=== PATIENT | female | born 2005 | race Caucasian/White ===

== ENCOUNTER 2024-08-19 19:12 | Emergency (ER) | payer BC, OTHER ==
[2024-08-19] MEDS ORDERED: Methocarbamol 500 MG TAB ONE (20:33)
== END 2024-08-19 20:45 | disposition home or self-care (01) ==
LOC: CSHERS 19:12
DX: S16.1XXA Strain of muscle, fascia and tendon at neck level, initial encounter (principal); S09.90XA Unspecified injury of head, initial encounter; V49.9XXA Car occupant (driver) (passenger) injured in unspecified traffic accident, initial encounter
CPT/HCPCS: 70450; 72125